=== PATIENT | female | born 1980 | race Two or more races ===

== ENCOUNTER 2022-09-15 23:44 | Emergency (ER) | payer MEDICAID, OTHER ==
[~2022-09-15] VITALS: Ht 152.4 cm; Wt 54.5 kg
[2022-09-16 00:01] VITALS: BP 157/99
== END 2022-09-16 06:50 | disposition home or self-care (01) ==
LOC: EDBD 23:44 → ER 23:44
DX: S06.0X0A Concussion without loss of consciousness, initial encounter (principal); S16.1XXA Strain of muscle, fascia and tendon at neck level, initial encounter; M62.838 Other muscle spasm; Y04.2XXA Assault by strike against or bumped into by another person, initial encounter; Y93.89 Activity, other specified; Y92.89 Other specified places as the place of occurrence of the external cause; Y99.8 Other external cause status
CPT/HCPCS: 70450; 72125

== ENCOUNTER 2024-02-26 03:21 | Emergency (ER) | payer MEDICAID ==
[~2024-02-26] VITALS: Ht 149.9 cm; Wt 60.6 kg
[2024-02-26 03:30] VITALS: BP 154/76; PULSE 68; RESP 20; TEMP 97.9; O2SAT 98
[2024-02-26 04:50] LABS: Urine Bacteria None Seen /hpf (None Seen)
[2024-02-26 04:57] LABS: Urine Blood 1+ /uL (Negative); Urine Clarity Clear (Clear); Urine Color Colorless (Yellow); Urine Protein, UAD Negative (Negative); Urine Specific Gravity 1.007 (1.001-1.035); Urine Urobilinogen Normal (Negative); Urine WBC 1 /hpf (0 - 5)
[2024-02-26] MEDS: diphenhdrAMINE HCL 50 MG/1 ML VL IM ONE (05:27)
[2024-02-26] MEDS: DexAMETHasone SOD PHOS 10MG/1ML VIAL INJ IM ONE (05:28)
== END 2024-02-26 05:51 | disposition home or self-care (01) ==
LOC: ER 03:21
DX: L50.0 Allergic urticaria (principal)
CPT/HCPCS: 81001; 96372; 99284; J1100; J1200